=== PATIENT | female | born 1975 | race Two or more races ===

== ENCOUNTER 2017-03-21 05:43 | Inpatient (IN) | payer BC ==
[~2017-03-21] VITALS: Ht 165.1 cm; Wt 122.0 kg
[~2017-03-21 05:43] MED LIST: BUPR150T73 PO; CALC-151 PO; CETI10CA PO; CYAN250013 PO; DOCU100T3 PO; DULO30CA2 PO; ERGO500017 PO; ESTR0.6246 PO; GABA300C10 PO; METH750T2 PO; TRAM100T2 PO
[2017-03-21] MEDS ORDERED: LACTATED RINGERS 1,000 ML IV SCH (06:06)
[2017-03-21] MEDS ORDERED: LIDOCAINE 1%, 2ML SQ PRN (06:30)
[2017-03-21] MEDS ORDERED: LIDOCAINE/PF 0.5% ,50ML ONE (06:35)
[2017-03-21] MEDS ORDERED: VANCOMYCIN 1,000 MG ONE ×2 (06:35→06:36)
[2017-03-21] MEDS ORDERED: BUPIVACAINE/PF 0.25% ONE (06:36)
[2017-03-21] MEDS ORDERED: THROMBIN 5,000 UNIT VIAL TP ONE (06:36)
[2017-03-21 06:44] VITALS: BP 143/86
[2017-03-21] MEDS ORDERED: DEXAMETHASONE 4 MG/ML, 1ML ONE (07:38)
[2017-03-21] MEDS ORDERED: ONDANSETRON 2MG/ML, 2ML ONE (07:38)
[2017-03-21] MEDS ORDERED: GLYCOPYRROLATE 0.2MG/1ML ONE (07:38)
[2017-03-21] MEDS ORDERED: SUCCINYLCHOLINE 20 MG/ML, 10ML ONE (07:38)
[2017-03-21] MEDS ORDERED: PROPOFOL 10 MG/ML, 20ML ONE (07:38)
[2017-03-21] MEDS ORDERED: CEFAZOLIN 1,000 MG ONE (07:38)
[2017-03-21] MEDS ORDERED: ROCURONIUM 10 MG/ML ONE (07:38)
[2017-03-21] MEDS ORDERED: NEOSTIGMINE 1 MG/ML, 10ML ONE (07:38)
[2017-03-21] MEDS ORDERED: MIDAZOLAM 1 MG/ML, 2ML ONE (07:39)
[2017-03-21] MEDS ORDERED: FENTANYL PF 250 MCG/5ML ONE (07:39)
[2017-03-21] MEDS ORDERED: MIDAZOLAM 1 MG/ML, 2ML IV PRN (09:00)
[2017-03-21] MEDS ORDERED: EPHEDRINE 50 MG/ML, 1ML IVPush PRN (09:00)
[2017-03-21] MEDS ORDERED: METOCLOPRAMIDE 5 MG/ML, 2ML IV PRN (09:00)
[2017-03-21] MEDS ORDERED: LABETALOL 5MG/ML, 20ML IV PRN (09:00)
[2017-03-21] MEDS ORDERED: METOPROLOL 1 MG/ML, 5ML IV PRN (09:00)
[2017-03-21] MEDS ORDERED: ACETAMINOPHEN 325 MG TABLET PO PRN (09:00)
[2017-03-21] MEDS ORDERED: ALBUTEROL SULFATE 2.5 MG/3 ML NPPB PRN (09:00)
[2017-03-21] MEDS ORDERED: MEPERIDINE/PF 25MG/0.5ML IVPush PRN (09:00)
[2017-03-21] MEDS ORDERED: hydrALAzine 20 MG/ML, 1ML IV PRN (09:00)
[2017-03-21] MEDS ORDERED: FENTANYL PF 100 MCG/2ML IV PRN (09:00)
[2017-03-21] MEDS ORDERED: HYDROcodone/APAP 7.5-325MG/15ML UDC PO PRN (09:00)
[2017-03-21] MEDS ORDERED: ONDANSETRON 2MG/ML, 2ML IVPush PRN (09:00)
[2017-03-21] MEDS ORDERED: HYDROmorphone 2 MG/ML, 1ML ONE (11:34)
[2017-03-21] MEDS ORDERED: HYDROcodone/APAP 7.5-325MG/15ML UDC ONE (11:35)
[2017-03-21] MEDS: HYDROmorphone 1 MG/ML, 1ML IV PRN ×2 (12:39→13:02)
[2017-03-21 14:08] VITALS: BP 139/82
[2017-03-21] MEDS ORDERED: DIAZEPAM 5 MG TABLET PO PRN (15:00)
[2017-03-21] MEDS ORDERED: DIAZEPAM 5 MG/ML, 2ML IV PRN (15:00)
[2017-03-21] MEDS ORDERED: morphine SULFATE 10 MG/ML, 1ML IV PRN (15:00)
[2017-03-21] MEDS ORDERED: HYDROcodone/APAP 5/325 TABLET PO PRN (15:00)
[2017-03-21] MEDS ORDERED: MAGNESIUM HYDROXIDE 8%, 30ML UDC PO PRN (15:00)
[2017-03-21] MEDS ORDERED: D5%-0.9% NACL+KCL 20MEQ 1,000 ML IV SCH (15:30)
[2017-03-21] MEDS: CEFAZOLIN PMX 2GM/50ML 50 ML IVPB SCH ×2 (16:03→23:28)
[2017-03-21] MEDS ORDERED: METHOCARBAMOL 750 MG in DEXTROSE 5% 100 ML IV PRN ×2 (17:30→19:30)
[2017-03-21] MEDS: POTASSIUM CHLORIDE 20 MEQ in SODIUM CHLORIDE 0.9% 1,000 ML IV SCH (18:08)
[2017-03-21] MEDS: METHOCARBAMOL 750 MG TABLET PO PRN (18:18)
[2017-03-21 20:02] VITALS: BP 119/70
[2017-03-21] MEDS ORDERED: GLIMEPIRIDE 1 MG TABLET PO SCH (21:00)
[2017-03-21] MEDS ORDERED: ATORVASTATIN 40 MG TABLET PO SCH (21:00)
[2017-03-21 23:46] VITALS: BP 107/69
[2017-03-22] MEDS: METHOCARBAMOL 750 MG TABLET PO PRN ×2 (02:27→10:59)
[2017-03-22 03:27] VITALS: BP 128/71
[2017-03-22] MEDS: POTASSIUM CHLORIDE 20 MEQ in SODIUM CHLORIDE 0.9% 1,000 ML IV SCH ×2 (04:03→13:42)
[2017-03-22 04:47] LABS: BLOOD UREA NITROGEN 9 mg/dL (7-18)
[2017-03-22] MEDS: HYDROcodone/APAP 10/325 MG TABLET PO PRN ×3 (06:26→18:03)
[2017-03-22] MEDS ORDERED: PANTOPROZOLE 40MG TABLET PO SCH (07:30)
[2017-03-22] MEDS: SENNA/DOCUSATE TABLET PO SCH (07:41)
[2017-03-22] MEDS: CEFAZOLIN PMX 2GM/50ML 50 ML IVPB SCH ×3 (07:41→23:28)
[2017-03-22 07:42] VITALS: BP 101/64
[2017-03-22] MEDS ORDERED: CHOLECALCIFEROL 1,000 UNIT TABLET PO SCH (09:00)
[2017-03-22] MEDS ORDERED: MULTIVITAMIN 1 TABLET PO SCH (09:00)
[2017-03-22] MEDS ORDERED: metFORMIN 500 MG TABLET PO SCH (09:00)
[2017-03-22] MEDS ORDERED: LISINOPRIL 10 MG TABLET PO SCH (09:00)
[2017-03-22] MEDS: MAGNESIUM HYDROXIDE 8%, 30ML UDC PO SCH (10:59)
[2017-03-22] MEDS: POLYETHYLENE GLYCOL 17 GM PACKET PO SCH (10:59)
[2017-03-22 12:50] VITALS: BP 113/77
[2017-03-22] MEDS: ONDANSETRON 2MG/ML, 2ML IV PRN ×2 (17:47→23:28)
[2017-03-22 19:48] VITALS: BP 110/70
[2017-03-22] MEDS: BUPROPION SR 150 MG TABLET PO SCH (23:36)
[2017-03-22] MEDS: DULOXETINE 20 MG CAPSULE.DR PO SCH (23:37)
[2017-03-22] MEDS: ESTROGENS CONJUGATED 0.625 MG TABLET PO SCH (23:38)
[2017-03-22] MEDS: GABAPENTIN 300 MG CAPSULE PO SCH (23:38)
[2017-03-22] MEDS ORDERED: CETIRIZINE 10 MG TABLET PO PRN (23:45)
[2017-03-23 02:28] VITALS: BP 112/69
[2017-03-23 05:09] LABS: BLOOD UREA NITROGEN 6 mg/dL (7-18)
[2017-03-23 06:48] VITALS: BP 120/71
[2017-03-23] MEDS: CEFAZOLIN PMX 2GM/50ML 50 ML IVPB SCH ×3 (07:27→23:23)
[2017-03-23] MEDS: ONDANSETRON 2MG/ML, 2ML IV PRN (07:40)
[2017-03-23] MEDS ORDERED: MAGNESIUM CITRATE 300ML ORAL SOL PO ONE (09:00)
[2017-03-23] MEDS ORDERED: HYDROmorphone 2MG TABLET PO PRN (09:00)
[2017-03-23] MEDS: MAGNESIUM HYDROXIDE 8%, 30ML UDC PO SCH (09:01)
[2017-03-23] MEDS: SENNA/DOCUSATE TABLET PO SCH (09:02)
[2017-03-23] MEDS: POLYETHYLENE GLYCOL 17 GM PACKET PO SCH (09:02)
[2017-03-23] MEDS: BUPROPION SR 150 MG TABLET PO SCH ×2 (09:03→22:22)
[2017-03-23 13:31] VITALS: BP 107/69
[2017-03-23] MEDS: BUTALB/APAP/CAFFEINE 50MG/325MG/40MG PO PRN ×2 (14:22→22:22)
[2017-03-23] MEDS: DULOXETINE 20 MG CAPSULE.DR PO SCH ×2 (15:42→22:23)
[2017-03-23 20:28] VITALS: BP 95/61
[2017-03-23] MEDS: GABAPENTIN 300 MG CAPSULE PO SCH (22:22)
[2017-03-23] MEDS: ESTROGENS CONJUGATED 0.625 MG TABLET PO SCH (22:23)
[2017-03-24 04:44] VITALS: BP 101/64
[2017-03-24 05:35] LABS: BLOOD UREA NITROGEN 6 mg/dL (7-18)
[2017-03-24] MEDS: BUTALB/APAP/CAFFEINE 50MG/325MG/40MG PO PRN (06:31)
[2017-03-24 06:40] VITALS: BP 120/71
[2017-03-24] MEDS: CEFAZOLIN PMX 2GM/50ML 50 ML IVPB SCH (07:48)
[2017-03-24] MEDS: SENNA/DOCUSATE TABLET PO SCH (07:50)
[2017-03-24] MEDS: MAGNESIUM HYDROXIDE 8%, 30ML UDC PO SCH (07:50)
[2017-03-24] MEDS: BUPROPION SR 150 MG TABLET PO SCH (07:50)
[2017-03-24] MEDS: POLYETHYLENE GLYCOL 17 GM PACKET PO SCH (07:50)
[2017-03-24] MEDS ORDERED: CYANOCOBALAMIN 1,000 MCG TABLET PO SCH (09:00)
[2017-03-24] MEDS ORDERED: HYDR2TAB29 PO (09:58)
[2017-03-24] MEDS ORDERED: CEPH-368 PO (09:59)
[2017-03-25] MEDS ORDERED: DULAGLUTIDE SQ SCH (15:00)
== END 2017-03-24 10:29 | disposition home health service (06) | DRG 460 ==
LOC: ORIP 05:43 → 4NOR 14:06 → DCLOUNGE 03-24 09:55
PROVIDERS: ADMIT Orthopaedic Surgery Orthopaedic Surgery of the Spine; ATTEND Orthopaedic Surgery Orthopaedic Surgery of the Spine
PROC: 01NB0ZZ Release Lumbar Nerve, Open Approach (ICD-10-PCS; 2017-03-21)
PROC: 0SG0071 Fusion of Lumbar Vertebral Joint with Autologous Tissue Substitute, Posterior Approach, Posterior Column, Open Approach (ICD-10-PCS; principal; 2017-03-21 07:30)
DX: M48.06 Spinal stenosis, lumbar region (principal); M43.16 Spondylolisthesis, lumbar region; M79.7 Fibromyalgia; Z90.710 Acquired absence of both cervix and uterus; Z90.49 Acquired absence of other specified parts of digestive tract; Z88.8 Allergy status to other drugs, medicaments and biological substances
CPT/HCPCS: 36415; 72100; 80048; 85025; C1713; J0690; J1100; J1170; J2001; J2250; J2270; J2405; J2704; J2710; J3010; J3370; J3480; J3490; C1762; J0330; J7030; J7120

== ENCOUNTER 2020-04-27 23:59 | Inpatient (IN) | payer BC, OTHER ==
[~2020-04-27] VITALS: Ht 162.6 cm; Wt 91.9 kg
[~2020-04-27 23:59] MED LIST changes: +CEPH-368 PO; +DULO20CA45 PO; +HYDR-3246 PO; +HYDR200T72 PO; +HYDR2TAB29 PO; +PILO5TAB PO; -TRAM100T2 PO; +TRAM100T33 PO
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
--- NOTE | 2020-04-28 00:10 | NUR ---
pt was ruled out for COVID at previous facility
--- NOTE | 2020-04-28 00:15 | NUR ---
Dr. Sam at bedside for eval
[2020-04-28] MEDS ORDERED: SODIUM CHLORIDE FLUSH 10ML SYR IVF ONE (00:30)
[2020-04-28] MEDS ORDERED: HYDROmorphone 1 MG/ML, 1ML INJ IVPush PRN (00:30)
[2020-04-28] MEDS ORDERED: VANCOMYCIN 2,100 MG in SODIUM CHLORIDE 0.9% 500 ML IV ONE (00:30)
[2020-04-28] MEDS ORDERED: ONDANSETRON 2MG/ML, 2ML IVPush ONE (00:30)
[2020-04-28] MEDS ORDERED: VANCOMYCIN PER PHARMACY MC ONE (00:30)
[2020-04-28 00:40] LABS: BASOPHILS % (AUTO) 0 % (0-1); EOSINOPHILS % (AUTO) 0 % (1-7); LYMPHOCYTES # (AUTO) 0.52 x10^3/uL (1-3.4); LYMPHOCYTES % (AUTO) 7 % (22-44); MD NO; MEAN CORPUSCULAR HGB CONC 32.5 g/dL (32.4-35.8); MEAN CORPUSCULAR VOLUME 86.2 fL (80-100); MEAN PLATELET VOLUME 8.5 fL (7.4-10.4); MONOCYTES # (AUTO) 0.22 x10^3/uL (0.2-0.8); MONOCYTES % (AUTO) 3 % (2-9); NEUTROPHILS # (AUTO) 6.28 x10^3/uL (1.8-6.8); NEUTROPHILS % (AUTO) 89 % (42-75); PLATELET COUNT 207 x10^3/uL (130-400); RED BLOOD COUNT 4.65 x10^6/uL (3.82-5.3); RED CELL DISTRIBUTION WIDTH 15.3 % (9.6-15.2)
[2020-04-28 00:49] LABS: ALANINE AMINOTRANSFERASE 249 U/L (12-78); ALBUMIN 3.3 g/dL (3.4-5.0); ANION GAP 5 mmol/L (5-15); CALCIUM 9.5 mg/dL (8.5-10.1); CHLORIDE 110 mmol/L (98-107); CREATININE 0.67 mg/dL (0.55-1.02)
[2020-04-28 00:52] LABS: ALKALINE PHOSPHATASE 305 U/L (45-117); BILIRUBIN,TOTAL 0.9 mg/dL (0.2-1.0); TOTAL PROTEIN 7.6 g/dL (6.4-8.2)
[2020-04-28] MEDS ORDERED: ONDANSETRON 2MG/ML, 2ML IVPush PRN (01:00)
[2020-04-28] MEDS ORDERED: hydrALAzine 20 MG/ML, 1ML IVPush PRN (01:00)
[2020-04-28] MEDS ORDERED: VANCOMYCIN PER PHARMACY MC PRN (01:00)
[2020-04-28] MEDS ORDERED: CEFTRIAXONE PMX 2GM/50ML 50 ML IVPB SCH (01:00)
--- NOTE | 2020-04-28 01:00 | NUR ---
pt is sleeping and has been mildly hypoxic. pt placed on O2 at 2L via NC. well tolerated. hospitalist has been to bedside for eval for admission
[2020-04-28] MEDS ORDERED: GABA600T7 PO (01:05)
--- NOTE | 2020-04-28 01:20 | NUR ---
report has been called to Ewa ZAMAN
--- NOTE | 2020-04-28 01:26 | NUR ---
admission paused as pt may be changed to [place]
[2020-04-28 01:38] LABS: HCT (SEDRATE) 40.2 % (34.6-47.8)
--- NOTE | 2020-04-28 02:03 | NUR ---
pt to floor, vancomycin infusing on admit
[2020-04-28 02:27] VITALS: BP 112/73
[2020-04-28] MEDS ORDERED: PHARMACOKINETIC MONITORING MC PRN (02:30)
[2020-04-28] MEDS ORDERED: PHARMACOKINETIC CONSULTATION MC ONE (02:30)
[2020-04-28] MEDS: SODIUM CHLORIDE 0.9% IV SCH ×4 (03:03→15:07)
[2020-04-28] MEDS: DEXAMETHASONE IV SCH ×2 (03:03→15:07)
[2020-04-28] MEDS: AMPICILLIN 2 GM in SODIUM CHLORIDE 0.9% 100 ML IVPB SCH ×4 (04:22→17:23)
[2020-04-28] MEDS: ACYCLOVIR IV SCH ×2 (04:35→15:03)
[2020-04-28] MEDS: SODIUM CHLORIDE 0.9% 1,000 ML IV SCH ×2 (04:42→20:46)
[2020-04-28] MEDS: ENOXAPARIN 40 MG/0.4 ML SQ SCH (07:55)
[2020-04-28 07:57] VITALS: BP 102/65
[2020-04-28] MEDS ORDERED: DEXAMETHASONE 4 MG/ML, 1ML IVPush SCH (09:00)
[2020-04-28] MEDS: FAMOTIDINE 20 MG TABLET PO SCH ×2 (10:19→19:24)
[2020-04-28] MEDS: VANCOMYCIN 1,300 MG in SODIUM CHLORIDE 0.9% 250 ML IV SCH ×2 (10:19→17:23)
[2020-04-28] MEDS ORDERED: GADOTERATE 10 MMOL/20 ML SYR ONE (13:45)
[2020-04-28 13:59] VITALS: BP 123/76
[2020-04-28 14:32] LABS: GLUCOSE, CSF 84 mg/dL (40-80); TOTAL PROTEIN,CSF 22 mg/dL (15-45)
[2020-04-28] MEDS: ACETAMINOPHEN 325 MG TABLET PO PRN ×2 (16:14→20:46)
[2020-04-28] MEDS: PIPERACILLIN/TAZO/PMX 3.375GM 50 ML IV SCH (19:24)
[2020-04-28 19:40] VITALS: BP 93/63
[2020-04-28] MEDS ORDERED: OMNIPAQUE 350 MG/ML, 100ML BOTTLE ONE (21:33)
[2020-04-29 00:58] VITALS: BP 102/60
[2020-04-29] MEDS: PIPERACILLIN/TAZO/PMX 3.375GM 50 ML IV SCH ×4 (01:11→20:20)
[2020-04-29] MEDS: SODIUM CHLORIDE 0.9% 1,000 ML IV SCH ×3 (04:47→23:16)
[2020-04-29 05:44] LABS: MICROSCOPIC NOT IND
[2020-04-29 06:26] LABS: BASOPHILS # (AUTO) 0.02 x10^3/uL (0-0.1); BASOPHILS % (AUTO) 0 % (0-1); EOSINOPHILS % (AUTO) 0 % (1-7); LYMPHOCYTES # (AUTO) 1.04 x10^3/uL (1-3.4); LYMPHOCYTES % (AUTO) 10 % (22-44); MD NO; MEAN CORPUSCULAR HEMOGLOBIN 27.6 pg (27.0-34.8); MEAN CORPUSCULAR HGB CONC 31.5 g/dL (32.4-35.8); MEAN CORPUSCULAR VOLUME 87.6 fL (80-100); MEAN PLATELET VOLUME 8.6 fL (7.4-10.4); MONOCYTES # (AUTO) 0.46 x10^3/uL (0.2-0.8); MONOCYTES % (AUTO) 4 % (2-9); NEUTROPHILS # (AUTO) 9.11 x10^3/uL (1.8-6.8); NEUTROPHILS % (AUTO) 86 % (42-75); PLATELET COUNT 194 x10^3/uL (130-400); RED BLOOD COUNT 4.27 x10^6/uL (3.82-5.3); RED CELL DISTRIBUTION WIDTH 15.1 % (9.6-15.2)
[2020-04-29 06:32] LABS: ANION GAP 4 mmol/L (5-15); CALCIUM 9.7 mg/dL (8.5-10.1); CHLORIDE 113 mmol/L (98-107); CREATININE 0.71 mg/dL (0.55-1.02)
[2020-04-29 08:06] VITALS: BP 123/56
[2020-04-29] MEDS ORDERED: ERGOCALCIFEROL 50,000 UNIT CAPSULE PO SCH (08:30)
[2020-04-29] MEDS: TEMPLATE NON-FORMULARY MED. (Pilocarpine Hcl** 5 MG) PO SCH ×2 (09:00→21:00)
[2020-04-29] MEDS: ENOXAPARIN 40 MG/0.4 ML SQ SCH (09:03)
[2020-04-29] MEDS: FAMOTIDINE 20 MG TABLET PO SCH ×2 (09:04→20:20)
[2020-04-29] MEDS: BUPROPION SR 150 MG TABLET PO SCH ×2 (09:14→20:20)
[2020-04-29] MEDS: GABAPENTIN 300 MG CAPSULE PO SCH (09:14)
[2020-04-29] MEDS: DULOXETINE 20 MG CAPSULE.DR PO SCH (09:14)
[2020-04-29] MEDS: HYDROXYCHLOROQUINE 200 MG TABLET PO SCH ×2 (09:14→20:20)
[2020-04-29] MEDS: CETIRIZINE 10 MG TABLET PO SCH (09:14)
[2020-04-29] MEDS: DOCUSATE 100 MG CAPSULE PO SCH (09:14)
[2020-04-29 12:17] VITALS: BP 132/77
[2020-04-29] MEDS: morphine SULFATE 10 MG/ML, 1ML IVPush PRN ×2 (18:42→23:16)
[2020-04-29 21:11] VITALS: BP 104/57
[2020-04-30] MEDS: PIPERACILLIN/TAZO/PMX 3.375GM 50 ML IV SCH ×4 (02:42→20:29)
[2020-04-30 03:00] VITALS: BP 136/80
[2020-04-30] MEDS: morphine SULFATE 10 MG/ML, 1ML IVPush PRN ×2 (05:17→19:53)
[2020-04-30 05:59] LABS: BASOPHILS # (AUTO) 0.03 x10^3/uL (0-0.1); BASOPHILS % (AUTO) 0 % (0-1); EOSINOPHILS # (AUTO) 0.18 x10^3/uL (0-0.4); EOSINOPHILS % (AUTO) 2 % (1-7); LYMPHOCYTES # (AUTO) 2.79 x10^3/uL (1-3.4); LYMPHOCYTES % (AUTO) 36 % (22-44); MD NO; MEAN CORPUSCULAR HEMOGLOBIN 28.2 pg (27.0-34.8); MEAN CORPUSCULAR HGB CONC 32.8 g/dL (32.4-35.8); MEAN PLATELET VOLUME 8.6 fL (7.4-10.4); MONOCYTES # (AUTO) 0.53 x10^3/uL (0.2-0.8); MONOCYTES % (AUTO) 7 % (2-9); NEUTROPHILS # (AUTO) 4.33 x10^3/uL (1.8-6.8); NEUTROPHILS % (AUTO) 55 % (42-75); PLATELET COUNT 199 x10^3/uL (130-400); RED BLOOD COUNT 3.82 x10^6/uL (3.82-5.3); RED CELL DISTRIBUTION WIDTH 15.5 % (9.6-15.2)
[2020-04-30 06:08] LABS: ANION GAP 1 mmol/L (5-15); CALCIUM 8.9 mg/dL (8.5-10.1); CHLORIDE 114 mmol/L (98-107); CREATININE 0.71 mg/dL (0.55-1.02)
[2020-04-30 06:50] VITALS: BP 124/75
[2020-04-30] MEDS: FAMOTIDINE 20 MG TABLET PO SCH ×2 (08:06→20:29)
[2020-04-30] MEDS: DOCUSATE 100 MG CAPSULE PO SCH (08:06)
[2020-04-30] MEDS: GABAPENTIN 300 MG CAPSULE PO SCH (08:06)
[2020-04-30] MEDS: ENOXAPARIN 40 MG/0.4 ML SQ SCH (08:07)
[2020-04-30] MEDS: CETIRIZINE 10 MG TABLET PO SCH (08:07)
[2020-04-30] MEDS: BUPROPION SR 150 MG TABLET PO SCH ×2 (08:07→20:29)
[2020-04-30] MEDS: HYDROXYCHLOROQUINE 200 MG TABLET PO SCH ×2 (08:07→20:29)
[2020-04-30] MEDS: DULOXETINE 20 MG CAPSULE.DR PO SCH (08:07)
[2020-04-30] MEDS: TEMPLATE NON-FORMULARY MED. (Pilocarpine Hcl** 5 MG) PO SCH ×2 (08:08→20:34)
[2020-04-30 08:11] LABS: ALBUMIN 2.4 g/dL (3.4-5.0)
[2020-04-30 08:14] LABS: ALKALINE PHOSPHATASE 171 U/L (45-117); BILIRUBIN,TOTAL 0.4 mg/dL (0.2-1.0); TOTAL PROTEIN 5.8 g/dL (6.4-8.2)
[2020-04-30] MEDS: SODIUM CHLORIDE 0.9% 1,000 ML IV SCH ×2 (08:15→17:03)
[2020-04-30 09:15] LABS: ALANINE AMINOTRANSFERASE 102 U/L (12-78)
[2020-04-30 12:16] VITALS: BP 124/72
[2020-04-30 18:34] VITALS: BP 104/66
[2020-05-01 01:13] VITALS: BP 103/54
[2020-05-01] MEDS: PIPERACILLIN/TAZO/PMX 3.375GM 50 ML IV SCH ×2 (02:14→08:41)
[2020-05-01] MEDS: SODIUM CHLORIDE 0.9% 1,000 ML IV SCH ×2 (02:15→11:14)
[2020-05-01 05:58] LABS: ALBUMIN 2.8 g/dL (3.4-5.0); ANION GAP 2 mmol/L (5-15); CHLORIDE 109 mmol/L (98-107)
[2020-05-01 06:02] LABS: ALANINE AMINOTRANSFERASE 115 U/L (12-78); ALKALINE PHOSPHATASE 212 U/L (45-117); BILIRUBIN,TOTAL 0.5 mg/dL (0.2-1.0); CREATININE 0.69 mg/dL (0.55-1.02); TOTAL PROTEIN 6.3 g/dL (6.4-8.2)
[2020-05-01 06:34] VITALS: BP 116/75
[2020-05-01] MEDS: ENOXAPARIN 40 MG/0.4 ML SQ SCH (08:00)
[2020-05-01] MEDS: DOCUSATE 100 MG CAPSULE PO SCH (08:40)
[2020-05-01] MEDS: DULOXETINE 20 MG CAPSULE.DR PO SCH (08:40)
[2020-05-01] MEDS: BUPROPION SR 150 MG TABLET PO SCH (08:40)
[2020-05-01] MEDS: HYDROXYCHLOROQUINE 200 MG TABLET PO SCH (08:40)
[2020-05-01] MEDS: GABAPENTIN 300 MG CAPSULE PO SCH (08:40)
[2020-05-01] MEDS: FAMOTIDINE 20 MG TABLET PO SCH (08:40)
[2020-05-01] MEDS: CETIRIZINE 10 MG TABLET PO SCH (08:40)
[2020-05-01] MEDS: TEMPLATE NON-FORMULARY MED. (Pilocarpine Hcl** 5 MG) PO SCH (09:00)
[2020-05-01 14:21] VITALS: BP 100/62
[2020-05-01] MEDS ORDERED: CIPR500T87 PO (14:44)
[2020-05-01] MEDS ORDERED: CIPROFLOXACIN 500 MG TABLET PO SCH (21:00)
== END 2020-05-01 16:00 | disposition home or self-care (01) | DRG 871 ==
LOC: ED 04-28 00:35 → EDIP 04-28 00:53 → 3N 04-28 02:05
PROVIDERS: ADMIT Student in an Organized Health Care Education/Training Program; ATTEND Internal Medicine
PROC: 009U3ZX Drainage of Spinal Canal, Percutaneous Approach, Diagnostic (ICD-10-PCS; principal; 2020-04-28)
PROC: B01B1ZZ Fluoroscopy of Spinal Cord using Low Osmolar Contrast (ICD-10-PCS; 2020-04-28)
DX: A41.51 Sepsis due to Escherichia coli [E. coli] (principal); G03.9 Meningitis, unspecified; D49.6 Neoplasm of unspecified behavior of brain; E86.0 Dehydration; G43.C0 Periodic headache syndromes in child or adult, not intractable; K59.00 Constipation, unspecified; M35.00 Sjogren syndrome, unspecified; M79.7 Fibromyalgia; G93.89 Other specified disorders of brain; R74.0 Nonspecific elevation of levels of transaminase and lactic acid dehydrogenase [LDH]; Z20.828 Contact with and (suspected) exposure to other viral communicable diseases; N30.90 Cystitis, unspecified without hematuria; R74.8 Abnormal levels of other serum enzymes; R94.5 Abnormal results of liver function studies; Z86.011 Personal history of benign neoplasm of the brain; Z90.710 Acquired absence of both cervix and uterus; Z79.899 Other long term (current) drug therapy; Z88.8 Allergy status to other drugs, medicaments and biological substances; Z88.5 Allergy status to narcotic agent; Z88.6 Allergy status to analgesic agent
CPT/HCPCS: 36415; 62328; 70553; 74177; 76705; 80048; 80053; 80074; 81003; 82945; 83735; 84100; 84157; 85025; 85651; 86140; 87040; 87070; 87075; 87102; 87116; 87205; 87206; 87210; 87496; 87798; 89051; 93005; 96374; 96375; 99285; G0378; J0133; J0290; J0696; J1100; J1650; J2543; J3370; Q9967; A9575; J2270; J7030; J7040; J7050